=== PATIENT | male | born 1955 | race Asian ===

== ENCOUNTER 2019-04-26 20:20 | Emergency (ER) | payer MEDICAID ==
[~2019-04-26] VITALS: Ht 167.6 cm; Wt 61.7 kg
--- NOTE | 2019-04-26 20:34 | NUR ---
ED Nurse Note: pt presents to ED via EMS arrival RA 34 for a syncopal episode. per EMS, pt has been drinking and fell and hit his head when he got up to use the restroom. the fall was witnessed by a friend who reports pt expereinced LOC for 1 minute. pt denies any pain right now. pt is covered in urine and has healing scars on his arms and torso. BS was 111 en route. vitals were 151/93, HR 75, R:16, SpO2: 100% on Room air. 20 gauge IV placed in L AC by paramedics
--- NOTE | 2019-04-26 20:34 | NUR ---
ED Nurse Note: abrasion to chin and L knee. healed abrasions to bilat lower extremities noted on exam
--- NOTE | 2019-04-26 20:41 | NUR ---
ED Nurse Note: pt has friend at bedside
[2019-04-26 20:44] LABS: HEMATOCRIT 40.6 % (42.0-52.0); HEMOGLOBIN 15.3 G/DL (14.2-18.0); MEAN CORPUSCULAR VOLUME 99 FL (80-99); PLATELET COUNT 99 K/UL (150-450); RED BLOOD COUNT 4.11 M/UL (4.70-6.10); RED CELL DISTRIBUTION WIDTH 10.5 % (11.6-14.8); WHITE BLOOD COUNT 6.3 K/UL (4.8-10.8)
[2019-04-26 20:50] VITALS: BP 151/93
--- NOTE | 2019-04-26 20:50 | NUR ---
ED Nurse Note: pt transported to CT via gurney in no acute distress, VSS
--- NOTE | 2019-04-26 20:54 | NUR ---
ED Nurse Note: telephone numbers Karsten (friend): [phone] Pathology Tech: [phone] Daughter: [phone]
[2019-04-26 20:55] LABS: INR 0.9 (0.9-1.1)
[2019-04-26 20:58] LABS: ANION GAP 7 mmol/L (5-15); BLOOD UREA NITROGEN 9 mg/dL (7-18); CALCIUM 9.1 MG/DL (8.5-10.1); CARBON DIOXIDE 32 MMOL/L (21-32); CHLORIDE 104 MMOL/L (98-107); CREATININE 0.8 MG/DL (0.55-1.30); POTASSIUM 4.1 MMOL/L (3.5-5.1); SODIUM 143 MMOL/L (136-145)
[2019-04-26 21:06] LABS: ALANINE AMINOTRANSFERASE 66 U/L (12-78); ALBUMIN 4.2 G/DL (3.4-5.0); ALBUMIN/GLOBULIN RATIO 0.8 (1.0-2.7); ALKALINE PHOSPHATASE 78 U/L (46-116); ASPARTATE AMINO TRANSFERASE 166 U/L (15-37); BILIRUBIN,TOTAL 1.2 MG/DL (0.2-1.0)
[2019-04-26 21:08] LABS: BILIRUBIN,DIRECT 0.4 MG/DL (0.0-0.3)
--- NOTE | 2019-04-26 21:08 | NUR ---
ED Nurse Note: pt has returned from CT. attached to monitoring engineer, fluids running. breaths even and unlabored. pt does not appear to be in any distress
--- NOTE | 2019-04-26 21:08 | Emergency Room Report ---
History of Present Illness General Chief Complaint: Syncope Source: Patient Present Illness HPI 63-year-old male, no past medical history no surgical history presents with mechanical fall, patient was walking, drinking today, fell forward hit his head , patient allegedly passed out, urinated himself, his friends did compressions on him for about 5 minutes patient had return of spontaneous circulation, patient alleges that nothing ever happened he just hit his head passed out he was back, patient denies any chest pain shortness of breath neck pain, he states he wants to leave, patient states he feels fine. History was difficult due to patient being intoxicated and verbally abusive, spoke with friend who calmed patient down. Allergies: Coded Allergies: No Known Allergies (Unverified , 04/26/19) Patient History Limited by: medical condition - Currently intoxicated Social History: Reports: alcohol use Reviewed Nursing Documentation: PMH: Agreed; PSxH: Agreed Nursing Documentation-PMH Past Medical History: No Stated History Review of Systems All Other Systems: limited - currently intoxicated Physical Exam Vital Signs Date Time Temp Pulse Resp B/P (MAP) Pulse Ox O2 Delivery O2 Flow Rate FiO2 04/26/19 20:17 75 16 151/93 (112) 100 Room Air Sp02 EP Interpretation: reviewed, normal General Appearance: well appearing, no apparent distress, alert Head: normocephalic, atraumatic Eyes: bilateral eye PERRL, bilateral eye EOMI ENT: uvula midline, moist mucus membranes Neck: supple, thyroid normal, supple/symm/no masses Respiratory: lungs clear, no respiratory distress, no retraction, no accessory muscle use Cardiovascular #1: normal peripheral pulses, regular rate, rhythm, no edema, no gallop, no murmur Gastrointestinal: non tender, soft, no guarding, no rebound Musculoskeletal: normal inspection Neurologic: alert, responsive Psychiatric: other - Aggressive Skin: no rash, warm/dry Procedures Critical Care Time Critical Care Time Given the critical condition in which the patient arrived, the patient was immediately assessed by myself and the nurse, and cardiac monitoring initiated due to the potential for rapid decompensation of the patient's clinical condition. During the course of the patient's stay, I spent a considerable amount of time at the bedside performing serial re-evaluations of the patient's hemodynamic and clinical status because of the recognized potential threat to life or limb in this condition. I then had a chance to review not only all of the available current laboratory and radiographic studies obtained today, but I also reviewed old records available to me at the time. Additionally, any ancillary information available including health counselor records were reviewed. Sequential vital signs were obtained. Critical Care time of 33 minutes was performed exclusive of billable procedures. Medical Decision Making Diagnostic Impression: Primary Impression: Syncope Qualified Codes: R55 - Syncope and collapse Additional Impressions: Closed head injury Qualified Codes: S09.90XA - Unspecified injury of head, initial encounter Traumatic subarachnoid hemorrhage with loss of consciousness Qualified Codes: S06.6X9A - Traumatic subarachnoid hemorrhage with loss of consciousness of unspecified duration, initial encounter ER Course 63-year-old male presents with possible cardiac arrest after hitting his head after drinking, unlikely given the fact he had rapid resolution to consciousness , patient states he feels completely fine has no chest pain or shortness of breath however he is currently intoxicated Differential diagnosis includes ACS, seizure, mechanical fall inducing seizure, closed head injury, traumatic bleed No obvious open wounds, CT head will be conducted, labs will be conducted, chest x-ray will be conducted CXR neg Patient kept walking out and trying to leave, patient currently intoxicated CT brain shows a traumatic SAH Keppra started Patient required Ativan, Benadryl, and Haldol in order to chemically restrain patient from leaving. Currently intoxicated. Patient accepted by Dr. Whiting 9:58pm will be transferred to [facility] Laboratory Tests Test 04/26/19 20:28 White Blood Count 6.3 K/UL (4.8-10.8) Red Blood Count 4.11 M/UL (4.70-6.10) L Hemoglobin 15.3 G/DL (14.2-18.0) Hematocrit 40.6 % (42.0-52.0) L Mean Corpuscular Volume 99 FL (80-99) Mean Corpuscular Hemoglobin 37.3 PG (27.0-31.0) H Mean Corpuscular Hemoglobin Concent 37.7 G/DL (32.0-36.0) H Red Cell Distribution Width 10.5 % (11.6-14.8) L Platelet Count 99 K/UL (150-450) L Mean Platelet Volume 6.1 FL (6.5-10.1) L Neutrophils (%) (Auto) % (45.0-75.0) Lymphocytes (%) (Auto) % (20.0-45.0) Monocytes (%) (Auto) % (1.0-10.0) Eosinophils (%) (Auto) % (0.0-3.0) Basophils (%) (Auto) % (0.0-2.0) Differential Total Cells Counted 100 Neutrophils % (Manual) 36 % (45-75) L Lymphocytes % (Manual) 63 % (20-45) H Monocytes % (Manual) 1 % (1-10) Eosinophils % (Manual) 0 % (0-3) Basophils % (Manual) 0 % (0-2) Band Neutrophils 0 % (0-8) Platelet Estimate Decreased L Platelet Morphology Normal Anisocytosis 1+ Macrocytosis 1+ Prothrombin Time 9.6 SEC (9.30-11.50) Prothrombin Time INR 0.9 (0.9-1.1) PTT 28 SEC (23-33) Sodium Level 143 MMOL/L (136-145) Potassium Level 4.1 MMOL/L (3.5-5.1) Chloride Level 104 MMOL/L (98-107) Carbon Dioxide Level 32 MMOL/L (21-32) Anion Gap 7 mmol/L (5-15) Blood Urea Nitrogen 9 mg/dL (7-18) Creatinine 0.8 MG/DL (0.55-1.30) Estimate Glomerular Filtration Rate > 60 mL/min (>60) Glucose Level 123 MG/DL (74-106) H Calcium Level 9.1 MG/DL (8.5-10.1) Total Bilirubin 1.2 MG/DL (0.2-1.0) H Direct Bilirubin 0.4 MG/DL (0.0-0.3) H Aspartate Amino Transferase (AST) 166 U/L (15-37) H Alanine Aminotransferase (ALT) 66 U/L (12-78) Alkaline Phosphatase 78 U/L (46-116) Troponin I 0.000 ng/mL (0.000-0.056) Total Protein 9.2 G/DL (6.4-8.2) H Albumin 4.2 G/DL (3.4-5.0) Globulin 5.0 g/dL Albumin/Globulin Ratio 0.8 (1.0-2.7) L Lipase 629 U/L (73-393) H Serum Alcohol Pending EKG Diagnostic Results EKG Time: 21:16 EP Interpretation: NSR rate 70, QTc 516, no acute ST elevations, normal axis Rhythm Strip Diag. Results Rhythm Strip Time: 21:48 EP Interpretation: yes Rate: 71 Rhythm: NSR, no PVC's, no ectopy Chest X-Ray Diagnostic Results Chest X-Ray Diagnostic Results : Chest X-Ray Ordered: Yes # of Views/Limited/Complete: 1 View Indication: Chest Pain EP Interpretation: Yes Interpretation: no consolidation, no effusion, no pneumothorax, no acute cardiopulmonary disease Impression: No acute disease Electronically Signed by: Jeremias Taylor MD CT/MRI/US Diagnostic Results CT/MRI/US Diagnostic Results : Impression Preliminary Findings Only See Final Report For Complete Findings CT HEAD: No comparison Impression: -Tiny, thin, linear possible subarachnoid hemorrhage following the inferior aspect of the left posterior temporal lobe axial image 21 and coronal image 22. -Otherwise no acute intracranial abnormality seen. -No traumatic cranial mass, mass effect, or herniation. -Cerebrovascular ASVD. -Chronic right neck sinusitis with findings potentially suggesting inverting papilloma, including expansion of the right ostiomeatal unit and complete right maxillary sinus opacification. -Recommend nonemergent ENT consultation for further evaluation of the maxillary sinus findings. -Paranasal sinus opacification of scattered ethmoidal air cells. Radiologist: Genaro Reynolds MD Study ready at 21:23 and initial results transmitted at 21:48 Critical Value Communications Clear Time Type Notes 04/26/19 21:[address] LING Last Vital Signs Date Time Temp Pulse Resp B/P (MAP) Pulse Ox O2 Delivery O2 Flow Rate FiO2 04/26/19 20:17 75 16 151/93 (112) 100 Room Air Disposition: XFER [facility] ICU Condition: Serious Jeremias Taylor MD Apr 26, 2019 21:08
[2019-04-26 21:10] VITALS: BP 143/94
[2019-04-26] MEDS ORDERED: Haloperidol 5mg/ml Inj IM ONE (21:45)
[2019-04-26] MEDS ORDERED: LORazepam Inj 2mg/ml 1ml IV ONE (21:45)
[2019-04-26] MEDS ORDERED: DiphenhydrAMINE 50mg/ml Inj IVP ONE (21:45)
[2019-04-26] MEDS ORDERED: levETIRAcetam 1,000mg/NS100ml 100 ML IVPB ONE (21:45)
--- NOTE | 2019-04-26 21:55 | NUR ---
Face sheet and CT report faxed to [facility].
--- NOTE | 2019-04-26 22:13 | NUR ---
ED Nurse Note: pt is lying in bed with eyes closed on the [place]eved[place] dock and CO2 monitor. pt does not appear to be in any distress, VSS, fluids and keppra running. breaths are even and unlabored. Dalia Rosenthal is at bedside and aware of transfer to [facility] Addendum: 04/26/19 at 2215 by QLE CO2: 32
[2019-04-26 22:14] VITALS: BP 105/80
--- NOTE | 2019-04-26 22:31 | NUR ---
ED Nurse Note: Report given to Yael RN and Kirill RN at [facility]
--- NOTE | 2019-04-26 23:02 | NUR ---
ED Nurse Note: pt transported by [place] [id number]
[2019-04-26 23:09] VITALS: BP 146/90
[2019-04-26 23:15] VITALS: BP 146/90
--- NOTE | 2019-04-27 12:14 | Diagnostic Imaging Report ---
Indication: Headache. Head trauma Technique: Contiguous 5 mm thick transaxial imaging of the head obtained in a Siemens Sensation [address] scanner. Soft tissue and bone windows generated. Automatic Exposure Control was utilized. Total Dose length Product (DLP): 1426.[address] Dose Index Volume (CTDIvol): 62.7 mGy Comparison: none Findings: There is a ill-defined focus of hypoattenuation in the posterior left temporal lobe just above the mastoid part of the temporal bone. This could be a small acute focus of hemorrhage. There is no mass effect or edema noted at this time. Mild to moderate prominence of the sulci ventricles and basal cisterns demonstrated consistent with atrophy of the cerebrum and cerebellum. There is periventricular low attenuation noted. There is a moderate opacification of the right ethmoid sinus and maxillary sinus. The [place] of the right maxillary sinus appear hypertrophied consistent with osteitis and chronic inflammation. IMPRESSION: Question of a small acute focus of subarachnoid hemorrhage in the posterior left temporal lobe. Follow-up recommended. MRI may be of benefit. Generalized atrophy of the cerebrum and cerebellum. Evidence of chronic small vessel disease involving periventricular white matter Right maxillary ethmoid sinusitis [facility] has communicated the preliminary results to the Emergency Department. Their findings are largely concordant with this report. The CT scanner at [facility] is accredited by the [employer] and the scans are performed using dose optimization techniques as appropriate to a performed exam including Automatic Exposure control.
--- NOTE | 2019-04-27 15:04 | Diagnostic Imaging Report ---
Indication: Dyspnea Comparison: 05/08/2010 A single view chest radiograph was obtained. Findings: Ill-defined calcifications are again demonstrated in the right upper lobe. No infiltrate seen with lungs are clear otherwise. Cardiac mediastinal silhouette and bones appear unremarkable. IMPRESSION: No acute disease. Old granulomatous disease.
== END 2019-04-26 23:15 | disposition short-term general hospital (02) ==
LOC: EDBD 20:20 → EMR 21:00
DX: R55 Syncope and collapse (principal); S09.90XA Unspecified injury of head, initial encounter; S06.6X9A Traumatic subarachnoid hemorrhage with loss of consciousness of unspecified duration, initial encounter; W19.XXXA Unspecified fall, initial encounter; Y92.9 Unspecified place or not applicable; F10.129 Alcohol abuse with intoxication, unspecified
CPT/HCPCS: 36415; 70450; 71045; 80053; 82248; 83690; 84484; 85007; 85025; 85610; 85730; 93005; 96361; 96365; 96372; 96375; G0480; J1200; J1630; J1953; Z7502; 99291; J7030